=== PATIENT | female | born 1990 | race Hispanic/Latino ===

== ENCOUNTER 2019-02-02 09:35 | Outpatient (CLI) | payer OTHER ==
--- NOTE | 2019-02-02 12:22 | ULT ---
LIMITED OB ULTRASOUND: HISTORY: Follow up of placental location. Possible placenta previa. COMPARISON: None. TECHNIQUE: Multiplanar vilchis-scale and color Doppler images were obtained in a limited OB ultrasound. FINDINGS: The placenta is anterior in location. The fetus is in a vertex presentation. There is no evidence of placenta previa. DAVID is 17.15 cm, which is normal. There is a single liver intrauterine with a heart rate of 129 beats per minute. A limited f etal survey was performed, which is unremarkable. The head, intracranial structures, heart, stomach, kidneys, umbilical cord, umbilical cord insertion and spine are unremarkable. Estimated weight is 1817 g. Average age of the fetus based off today's examination is 31 weeks 3 days. The following m easurements were taken and dates based off these measurements are as follows: BPD: 7.54 cm (30 weeks 2 days) HC: 28.85 cm (31 weeks 6 days) AC: 28.39 cm (32 weeks 3 days) FL: 5.91 cm (30 weeks 6 days) IMPRESSION: 1. Single live intrauterine with estimated age of 31 weeks 3 days. 2. No evidence of placenta previa. POS: CET
== END 2019-02-02 09:36 | disposition home or self-care (01) ==
LOC: BICULT 09:35
DX: O09.893 Supervision of other high risk pregnancies, third trimester (principal); Z3A.31 31 weeks gestation of pregnancy
CPT/HCPCS: 76815

== ENCOUNTER 2019-03-15 05:30 | Inpatient (IN) | payer MEDICAID, OTHER, SELFPAY ==
[2019-03-15 07:16] VITALS: BMI 30.9
[2019-03-15] MEDS ORDERED: FLU VACC QS2019-20(6MOS UP)/PF 60 MCG/0.5 ML SYRINGE IM ONE (07:30)
[2019-03-15] MEDS: Lactated Ringer's 1,000 ML IV SCH ×2 (07:47→11:17)
[2019-03-15] MEDS ORDERED: Carboprost 250 MCG/ML AMP IM PRN (07:48)
[2019-03-15] MEDS ORDERED: hydrALAZINE 20 MG/ML VIAL SLOW IVP PRN ×2 (07:48→15:14)
[2019-03-15] MEDS ORDERED: HYDROcodone/Acetaminophen 5/325 mg Tablet PO PRN ×3 (07:48→15:14)
[2019-03-15] MEDS ORDERED: Butorphanol Tartrate 1 MG/ML VIAL SLOW IVP PRN (07:48)
[2019-03-15] MEDS ORDERED: Lidocaine 1% (PF) 30 ML VIAL SC PRN (07:48)
[2019-03-15] MEDS ORDERED: Ibuprofen 800 MG TAB PO PRN (07:48)
[2019-03-15] MEDS ORDERED: NS / Oxytocin 40 units/1000ml 1,000 ML IV PRN (07:48)
[2019-03-15] MEDS ORDERED: Promethazine HCl 25 MG/ML VIAL IM PRN ×2 (07:48→15:14)
[2019-03-15] MEDS ORDERED: Ondansetron PF 4 MG/2 ML Vial IVP PRN ×2 (07:48→15:14)
[2019-03-15] MEDS ORDERED: Diphenoxylate HCl/Atropine Tablet PO PRN (07:48)
[2019-03-15] MEDS ORDERED: Misoprostol 200 MCG TAB PR PRN (07:48)
[2019-03-15] MEDS ORDERED: NS w/ Oxytocin 10 units 500 ML IV SCH ×2 (07:48)
[2019-03-15] MEDS ORDERED: Methylergonovine 0.2 MG/ML VIAL IM PRN (07:48)
[2019-03-15 08:29] LABS: Hemoglobin 8.9 g/dL (12.0-16.0); Mean Corpuscular HGB CONC 32.2 g/dL (32.0-36.0); Mean Corpuscular Hemoglobin 22.9 pg (27.0-31.0); Mean Corpuscular Volume 71.2 fL (78.0-98.0); Mean Platelet Volume 8.3 fL (7.4-10.4); Platelet Count 387 thou/uL (130-400); RBC Distribution Width 15.7 % (11.5-14.5); Red Blood Cell (RBC) Count 3.89 mill/uL (4.20-5.40); White Blood Cell (WBC) Count 10.2 thou/uL (4.8-10.8)
[2019-03-15 09:07] LABS: Syphilis Antibody Nonreactive (Nonreactive); Syphilis Antibody Index 0.04 S/CO (<1.00 Non-Reactive)
[2019-03-15 11:03] LABS: HBSAg Index 0.13 S/CO (0-0.99); Hep B Surf Ag Non-Reactive S/CO (NonReactive)
[2019-03-15] MEDS ORDERED: NS / Oxytocin 40 units/1000ml 1,000 ML ONE (13:44)
[2019-03-15] MEDS ORDERED: Lidocaine 1% (PF) 30 ML VIAL ONE (13:44)
[2019-03-15] MEDS ORDERED: Preparation H Ointment 28 GM TUBE PR PRN (15:14)
[2019-03-15] MEDS ORDERED: Adacel (T-DAP) 0.5 ML SYRINGE IM ONE (15:14)
[2019-03-15] MEDS ORDERED: Milk Of Magnesia 30 ML UDCUP PO PRN (15:14)
[2019-03-15] MEDS ORDERED: Benzocaine-Menthol 82.5 ML CAN TOP PRN (15:14)
[2019-03-15] MEDS ORDERED: Bisacodyl 10 MG SUPP PR PRN (15:14)
[2019-03-15] MEDS ORDERED: NS / Oxytocin 40 units/1000ml 1,000 ML IV SCH (15:14)
[2019-03-15] MEDS ORDERED: Lanolin Ointment 7 GM TUBE TOP PRN (15:14)
[2019-03-15] MEDS: Ferrous Sulfate 325 MG TAB PO SCH (17:43)
[2019-03-15] MEDS: Ibuprofen 800 MG TAB PO SCH (21:25)
[2019-03-15] MEDS: Docusate Calcium (SURFAK) 240 MG CAP PO SCH (21:25)
[2019-03-16] MEDS: Ibuprofen 800 MG TAB PO SCH ×2 (06:04→14:31)
[2019-03-16 06:32] LABS: Hemoglobin 7.7 g/dL (12.0-16.0); Mean Corpuscular HGB CONC 31.6 g/dL (32.0-36.0); Mean Corpuscular Hemoglobin 22.5 pg (27.0-31.0); Mean Corpuscular Volume 71.1 fL (78.0-98.0); Mean Platelet Volume 7.9 fL (7.4-10.4); Platelet Count 339 thou/uL (130-400); RBC Distribution Width 15.8 % (11.5-14.5); White Blood Cell (WBC) Count 14.4 thou/uL (4.8-10.8)
[2019-03-16 08:23] VITALS: BP 109/59; TEMP 98.2
[2019-03-16] MEDS ORDERED: Prenatal Vitamin 1 TAB PO SCH (09:00)
[2019-03-16] MEDS: Docusate Calcium (SURFAK) 240 MG CAP PO SCH (09:23)
[2019-03-16] MEDS: Ferrous Sulfate 325 MG TAB PO SCH (09:23)
[2019-03-16] MEDS ORDERED: FLU VACC QS2019-20(6MOS UP)/PF 60 MCG/0.5 ML SYRINGE IM ONE (15:30)
[2019-03-16] MEDS ORDERED: Adacel (T-DAP) 0.5 ML SYRINGE IM ONE (15:30)
--- NOTE | 2019-03-19 09:25 | PQF ---
Radha Mendoza ROLAND R MD [id number] CLINICAL DOCUMENTATION CLARIFICATION FORM: POST DISCHARGE Addendum to original discharge summary date: ____ Late entry note date: __ DATE:03/19/2019 ATTN:KEYON HAWLEY MD Please exercise your independent, professional judgment in responding to the clarification form. Clinical indicators are provided on the bottom of this form for your review Please check appropriate box(s): [ ] Acute blood loss anemia [ ] Post-op anemia related to acute blood loss [ ] Anemia: [ ] Aplastic [X ] Nutritional [ ] Drug induced (specify) __ [ ] Hemolytic [ ] Hereditary [ ] Acquired [ ] Autoimmune [ ] Non-autoimmune [ ] Enzyme disorder [ X ] Chronic Anemia: [ ] Blood loss [ ] Hemolytic [ X ] Simple [ ] Due to Vitamin B12 Deficiency [ ] Other [ ] Anemia of Chronic Disease (please specify) [ ] Anemia due to Neoplasm: [ ] Primary [ ] Secondary [ ] Anemia due to (please choose): [ ] Due to Chemotherapy [ ] Due to Radiotherapy [ ] Due to Immunotherapy [ ] Other diagnosis [ ] Unable to determine For continuity of documentation, please document condition throughout progress notes and discharge summary. Thank You. CLINICAL INDICATORS - SIGNS / SYMPTOMS / LABS Perineal first degree laceration-Documented in Labor and delivery scanned note on 03/15 Vaginal delivery- Documented in Labor and delivery scanned note on 03/15 EBL-200 ml -Documented in progress notes scanned on 03/15 HGB-8.9. to 7.7,HCT 27.7 to 24.2 -Documented in Laboratory RISK FACTORS Vaginal delivery-Documented in Labor and delivery scanned note on 03/15 Perineal first degree laceration-Documented in Labor and delivery scanned note on 03/15 TREATMENTS: Ferrous sulfate 325 mg tab-Documented in Discharge home Medication on 03/16 [employer] Win[employer] Viewer (This form is maintained as a part of the permanent medical record) 2014 [employer]. All Rights Reserved [email or web address] [not provided] [email or web address]
== END 2019-03-16 17:30 | disposition home or self-care (01) | DRG 807 ==
LOC: L&D 06:42 → 3SW 17:13
PROVIDERS: ADMIT Family Medicine; ATTEND Family Medicine
PROC: 10E0XZZ Delivery of Products of Conception, External Approach (ICD-10-PCS; principal; 2019-03-15)
PROC: 0HQ9XZZ Repair Perineum Skin, External Approach (ICD-10-PCS; 2019-03-15)
PROC: 10907ZC Drainage of Amniotic Fluid, Therapeutic from Products of Conception, Via Natural or Artificial Opening (ICD-10-PCS; 2019-03-15)
DX: O99.02 Anemia complicating childbirth (principal); Z37.0 Single live birth; D64.9 Anemia, unspecified; O70.0 First degree perineal laceration during delivery; Z3A.39 39 weeks gestation of pregnancy
CPT/HCPCS: 36415; 85027; 86780; 86850; 86870; 86900; 86901; 86905; 86922; 87340; 90471; 90686; 90715; G0008; J2001; J2590